=== PATIENT | male | born 1945 | race Caucasian/White ===

== ENCOUNTER 2019-03-16 05:00 | Day surgery (SDC) | payer MEDICARE, OTHER ==
[2019-03-11 10:32] LABS: BASOPHILS # (AUTO) 0.1 X10'3 (0-0.2); BASOPHILS % (AUTO) 1.2 % (0-1); EOSINOPHILS # (AUTO) 0.2 X10'3 (0-0.9); EOSINOPHILS % (AUTO) 3.9 % (0-6); HEMATOCRIT 52.1 % (42.0-52.0); HEMOGLOBIN 17.9 g/dl (14.0-17.9); LYMPHOCYTES # (AUTO) 1.9 X10'3 (1.1-4.8); LYMPHOCYTES % (AUTO) 32.2 % (21-51); MEAN CORPUSCULAR HEMOGLOBIN 29.7 PG (27.0-31.0); MEAN CORPUSCULAR HGB CONC 34.4 g/dL (33.0-36.5); MEAN CORPUSCULAR VOLUME 86.4 FL (78-98); MEAN PLATELET VOLUME 7.4 FL (7.4-10.4); MONOCYTES # (AUTO) 0.6 X10'3 (0-0.9); MONOCYTES % (AUTO) 9.7 % (2-12); NEUTROPHILS # (AUTO) 3.1 X10'3 (1.8-7.7); PLATELET COUNT 199 X10'3 (140-440); RED BLOOD COUNT 6.04 X10'6 (4.70-6.10); RED CELL DISTRIBUTION WIDTH 12.3 % (11.5-14.5); WHITE BLOOD COUNT 5.9 X10'3 (4.5-11.0)
[2019-03-11 10:39] LABS: ANION GAP 5 (8-16); BLOOD UREA NITROGEN 16 MG/DL (7-18); BUN/CREATININE RATIO 13.6 (5.4-32.0); CHLORIDE 105 MMOL/L (99-107); CREATININE 1.18 MG/DL (0.60-1.10); GLUCOSE 131 MG/DL (70-104); POTASSIUM 4.7 MMOL/L (3.5-5.1); SODIUM 142 MMOL/L (135-145); TOTAL CARBON DIOXIDE 32.1 MMOL/L (24-32); eGFR 60 ML/MIN
[2019-03-11 10:43] LABS: PARTIAL THROMBOPLASTIN TIME 27 SECONDS (22-32)
[~2019-03-16] VITALS: Ht 172.7 cm; Wt 72.9 kg
[2019-03-16] VITALS (14 sets, daily range): BP systolic 120–171; BP diastolic 71–93
[2019-03-16] MEDS ORDERED: PRAV10TA39 PO (05:15)
[2019-03-16] MEDS ORDERED: OMEG1CAP20 PO (05:15)
[2019-03-16] MEDS ORDERED: CLON-527 PO (05:15)
[2019-03-16] MEDS ORDERED: ASPI-611 PO (05:15)
[2019-03-16] MEDS ORDERED: MULT-1085 PO (05:15)
[2019-03-16] MEDS ORDERED: LIDOcaine/PRILOcaine 5gm cream TP ONE (05:20)
[2019-03-16] MEDS ORDERED: diphenhydrAMINE 25mg capsule PO PRN (05:20)
[2019-03-16] MEDS ORDERED: normal saline 1,000 ML IV SCH (05:20)
[2019-03-16] MEDS ORDERED: LORazepam 0.5 MG tablet PO PRN (05:20)
[2019-03-16] MEDS ORDERED: midazolam 2 mg/2 ml injection ONE (06:11)
[2019-03-16] MEDS ORDERED: fentaNYL/PF 50MCG/1 ML 2ML syringe ONE (06:11)
[2019-03-16] MEDS ORDERED: nitroGLYCERIN-Tridil 50MG/D5W 250 ML IV ONE (06:11)
[2019-03-16] MEDS ORDERED: verapamil 2.5 mg/ml inj IV ONE (06:11)
[2019-03-16] MEDS ORDERED: iohexol 350MG/ML 100ml bottle IV ONE (06:12)
[2019-03-16] MEDS ORDERED: heparin 1,000unit/ml 10ml vial 10 ML ONE (06:12)
[2019-03-16] MEDS ORDERED: LIDOcaine 1% (10mg/ml)w/preservative injection 20ml MDV ONE (06:12)
[2019-03-16] MEDS ORDERED: HYDROcodone/acetaminophen 10/325mg tab PO PRN (07:35)
[2019-03-16] MEDS ORDERED: ondansetron/PF 4mg/2ml inj IV PRN (07:35)
[2019-03-16] MEDS ORDERED: proCHLORperazine 10 MG/2 ml inj IV PRN (07:35)
[2019-03-16] MEDS ORDERED: acetaminophen 325mg tablet PO PRN (07:35)
[2019-03-16] MEDS ORDERED: OXAZEpam 15mg capsule PO PRN (07:35)
[2019-03-16] MEDS ORDERED: HYDROcodone/acetaminophen 5mg/325mg tablet PO PRN (07:35)
== END 2019-03-16 11:00 | disposition home or self-care (01) ==
LOC: SSTAY O 05:00
PROVIDERS: ATTEND Internal Medicine Interventional Cardiology
DX: I25.10 Atherosclerotic heart disease of native coronary artery without angina pectoris (principal); E78.5 Hyperlipidemia, unspecified; Z79.82 Long term (current) use of aspirin; Z79.899 Other long term (current) drug therapy; Z79.01 Long term (current) use of anticoagulants
CPT/HCPCS: 36415; 80048; 85025; 85610; 85730; 93005; 93458; 99152; 99153; C1769; C1894; J1644; J2001; J2250; J3010; J7030; Q0163; Q9967; A4620; A5120; A6258; J3490